=== PATIENT | male | born 1985 | race Two or more races ===

== ENCOUNTER 2024-08-12 20:01 | Emergency (ER) | payer MEDICAID, SELFPAY ==
--- NOTE | 2024-08-12 | ECG_ITS ---
Test Reason : TACHYCARDIA Blood Pressure : / mmHG Vent. Rate : 119 BPM Atrial Rate : 119 BPM P-R Int : 154 ms QRS Dur : 086 ms QT Int : 312 ms P-R-T Axes : 041 083 028 degrees QTc Int : 438 ms Sinus tachycardia Otherwise normal ECG When compared with ECG of 02-DEC-2018 15:17, Heart rate has increased Referred By: Generic ED Physician Electronically Signed By:SHIV PERSON
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
[2024-08-12 20:13] VITALS: BP 141/77; PULSE 119; RESP 16; O2SAT 96; BMI 51.1
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
[2024-08-12] MEDS: Acetaminophen 325 MG TABLET 975 MG PO (21:01)
[2024-08-12 22:10] VITALS: BP 141/77; PULSE 119; RESP 16; TEMP 36.9; O2SAT 96
== END 2024-08-12 22:10 | disposition home or self-care (01) ==
PROVIDERS: Emergency Provider Emergency Medicine
DX: S00.03XA Contusion of scalp, initial encounter (principal); Y08.02XA Assault by strike by baseball bat, initial encounter; M54.2 Cervicalgia; R00.0 Tachycardia, unspecified; Y93.9 Activity, unspecified; Y92.9 Unspecified place or not applicable; Y99.9 Unspecified external cause status
CPT/HCPCS: 70450; 72125; 93005; 99284

== ENCOUNTER 2025-04-03 13:01 | Emergency (ER) | payer MEDICAID, SELFPAY ==
--- NOTE | ~2025-04-03 | XR_ITS ---
CLINICAL HISTORY: Left chest wall pain, cough Two views of the chest. COMPARISON: None FINDINGS: Low lung volumes. Borderline cardiomegaly. Crowding of the bronchovascular markings, likely secondary to low lung volumes. No consolidation No pleural effusion or pneumothorax. Mild spondylosis. No acute fracture. IMPRESSION: 1. Low lung volumes with associated crowding of the bronchovascular markings This document has been electronically signed by: Saeed Arora MD on 04/03/2025 15:43:20
[2025-04-03 13:03] VITALS: BP 152/92; PULSE 99; RESP 20; TEMP 36.5; O2SAT 93; BMI 51.7
--- NOTE | 2025-04-03 13:08 | ED.GENADULT ---
HPI - General Adult General Chief complaint: Abdominal Pain Stated complaint: quest kidney stone Time Seen by Provider: 04/03/25 13:50 Source: patient Mode of arrival: ambulatory Limitations: no limitations History of Present Illness ED Provider: Jaxon Vo DO HPI narrative: 39-year-old male with past medical history of epilepsy on levetiracetam presents to the ED for 3 weeks of intermittent left-sided upper abdominal pain without nausea, hematuria, or dysuria. He denies fevers or chills. He has not had any vomiting or diarrhea. Patient does state that he has had a couple of weeks of urinary urgency and frequency. His pain does not radiate to his groin. He specifically states the pain is worsened with position changes and palpation and does not occur while in a comfortable position. He has an associated cough productive of sputum but has not looked at the sputum to evaluate the color. He has had no fevers but reports chills over the past couple of days. The cough has been present for a few days. No sick contacts at home. Smokes a cigar approximately once a day. Does not currently have a primary care provider. Related Data Previous Rx's ?Medication ?Instructions ?Recorded cefdinir 300 mg capsule 300 mg PO BID 10 days #20 caps 04/03/25 Allergies Allergy/AdvReac Type Severity Reaction Status Date / Time No Known Allergies Allergy Verified 04/03/25 13:04 Review of Systems Review of Systems: Yes all other systems are reviewed and are negative [facility] Social History Social History Advance Directives: No Advance Directives Information Provided: No Physical Exam ED Vital Signs: Vital Signs - 24 hr 04/03/25 13:03 Temperature 97.7 F Pulse Rate 99 Respiratory Rate 20 Blood Pressure 152/92 H Pulse Oximetry 93 Oxygen Delivery Method Room Air BMI result Body Mass Index 51.7 Constitutional: ?Alert, oriented, speaking in full sentences HEENT: ?Normocephalic, atraumatic. ?Moist mucous membranes Eyes: ?PERRL, EOMI Neck: ?Supple, nontender Chest: ?No chest wall tenderness Respiratory: ?Lungs clear to auscultation, no increased work of breathing, somewhat limited due to body habitus, occasional cough worsened with deep breaths Cardio: ?Regular rate and rhythm, no murmur, 2+ radial and DP pulses symmetrically GI: ?Soft, nondistended, nontender anteriorly but there is mild tenderness over the left lateral chest wall without overlying skin changes. Back: ?Normal range of motion, nontender Skin: ?No rash, no lesions Neuro: ?Alert and oriented to person, place and time, moves all 4 extremities, no focal deficits Extremities: ?No swelling or tenderness, full range of motion Psych: ?Calm, alert and cooperative, appropriate behavior Course Course Course Narrative: RME, this is a rapid medical exam performed by Babatunde Chapman please refer to primary provider for complete H&P- 39-year-old male presents for evaluation of left upper abdominal pain, flank pain. His pain is reproducible on exam, he reports his pain is worse with changing positions. He is concerned for kidney stones. Plan for labs, urinalysis. Medications Administered Discontinued Medications Generic Name Dose Route Start Last Admin Trade Name Freq PRN Reason Stop Dose Admin Acetaminophen 975 mg 04/03/25 14:29 04/03/25 14:49 Acetaminophen 325 Mg Tablet PO 04/03/25 14:30 975 mg ONCE ONE Administration Ibuprofen 600 mg 04/03/25 14:29 04/03/25 14:49 Ibuprofen 600 Mg Tablet PO 04/03/25 14:30 600 mg ONCE ONE Administration Lidocaine 1 patch 04/03/25 14:29 04/03/25 14:48 Lidocaine 4 % Patch Adh..Patch TRANSDERMA 04/03/25 14:30 1 patch ONCE ONE Administration Protocol Medical Decision Making Medical Decision Making [facility] Narrative: Vitally stable, overall well-appearing patient presenting with several weeks of left-sided chest wall pain as well as a couple of days of a productive cough. His urinary urgency and frequency could be indicative of acute cystitis. His cough could be indicative of pneumonia, especially with the pain. He has no signs of fluid overload clinically and no pleuritic chest pain or dyspnea on exertion. I do not suspect pulmonary embolism. I do not suspect ACS. The patient has no exertional symptoms. I also do not suspect ureteral stone and the patient has no blood in his urine. He has equivocal findings for cystitis and given the increased urgency and frequency, would likely benefit from antibiotics. We will further evaluate with chest x-ray for any radiographic signs of pneumonia. We will address his pain with lidocaine patch, acetaminophen and ibuprofen. Patient has no significant symptoms concerning for prostatitis. Unlikely to be a perinephric abscess or jessie pyelonephritis given the length of his symptoms and lack of fever, well appearance and lack of inflammatory markers. Chest x-ray per my independent interpretation shows no obvious acute abnormalities. Given the patient's urinary symptoms, we will treat with cefuroxime and prescribed a 7 day course. Return precautions provided. Lab Data MDM Lab Attestation statement: I reviewed the patient's lab results. 04/03/25 13:40 04/03/25 13:40 Labs: Lab Results 04/03/25 04/03/25 Range/Units 13:40 13:47 WBC 4.5 L (4.8-10.8) X10*3/uL RBC 5.64 (4.60-5.80) X10*6/uL Hgb 15.9 (14.0-18.0) g/dl Hct 47.8 (42.0-52.0) % MCV 84.8 (80.0-98.0) fL MCH 28.2 (27.0-33.0) pg MCHC 33.3 (31.0-36.0) g/dl RDW 13.9 (11.0-16.0) % Plt Count 207 (160-400) X10*3/uL MPV 9.7 (9.4-12.4) fL Immature Gran % (Auto) 0.0 (0.0-0.4) % Neut % (Auto) 60.6 (45-73) % Lymph % (Auto) 30.7 (20-40) % [place] % (Auto) 5.8 (2-11) % Eos % (Auto) 2.2 (0-4) % Baso % (Auto) 0.7 (0-2) % Lymph # (Auto) 1.4 (1.2-4.9) X10*3/uL [place] # (Auto) 0.3 (0.1-1.2) X10*3/uL Eos # (Auto) 0.1 (0.0-0.4) X10*3/uL Baso # (Auto) 0.0 (0.0-0.2) X10*3/uL Abs Immat Gran (auto) 0.00 (0.00-0.03) X10*3/uL Absolute Neuts (auto) 2.7 (2.0-8.3) x10*3/uL Absolute Nucleated RBC 0.000 (0.0-0.012) X10*3/uL Nucleated RBC % (auto) 0.0 (0.0-0.2) /100WBC Sodium 148 H (135-145) mmol/L Potassium 4.1 (3.3-5.1) mmol/L Chloride 114 H (96-108) mmol/L Carbon Dioxide 24 (22-29) mmol/L Anion Gap 14 (12-20) BUN 12 (9-16) mg/dL Creatinine 0.91 (0.5-1.4) mg/dL Estim Creat Clear Calc 190.4 Estimated GFR > 60 Random Glucose 179 H (60-115) mg/dL Calcium 9.3 (8.4-10.2) mg/dL Total Bilirubin 0.3 (0.0-1.0) mg/dL AST 26 (5-37) U/L ALT 30 (0-40) U/L Alkaline Phosphatase 58 (39-117) U/L Total Protein 7.1 (6.5-8.0) g/dL Albumin 3.9 (3.5-5.0) g/dL Urine Color Yellow Urine Appearance Clear Urine pH 5.5 (5.0-9.0) Ur Specific [place] 1.025 (1.005-1.025) Urine Protein Negative (Neg-Trace) mg/dL Urine Glucose (UA) 100 H (Negative) mg/dL Urine Ketones Negative (Negative) mg/dL Urine Blood Negative (Negative) Urine Nitrite Negative (Negative) Ur Leukocyte Esterase Trace H (Negative) Urine RBC 0-2 (0-2) /HPF Urine WBC 11-20 H (0-5) /HPF Ur Squamous Epith Cells 0-2 (0-2) /HPF Urine Bacteria Trace (None Seen) Hyaline Casts 0-2 (0-2) /LPF Discharge Plan Discharge Clinical Impression: Acute cystitis Qualifiers: Hematuria presence: without hematuria Qualified Code(s): N30.00 - Acute cystitis without hematuria Patient Disposition: Home, Self-Care Instructions: Urinary Tract Infection in Men (ED) Additional Instructions: It appears that you have a urinary tract infection. We gave you a dose of cefuroxime and prescribed a 7 day course. Please take the full course and follow up with the primary care provider and a urologist for further evaluation. Please return if you have any new or worsening symptoms. Prescriptions: New cefdinir 300 mg capsule 300 mg PO BID 10 Days Qty: 20 0RF [place] [facility] [place]] [facility] [place] Group] Stand Alone Forms: Work/School Release Print Language: Israeli
[2025-04-03 13:44] LABS: MANUAL DIFF FLAG NO
[2025-04-03 13:46] LABS: Basophils Percent Auto 0.7 % (0-2); Eosinophils Absolute Auto 0.1 X10*3/uL (0.0-0.4); Eosinophils Percent Auto 2.2 % (0-4); Hematocrit 47.8 % (42.0-52.0); Hemoglobin 15.9 g/dl (14.0-18.0); Lymphocytes Absolute Auto 1.4 X10*3/uL (1.2-4.9); Lymphocytes Percent Auto 30.7 % (20-40); Mean Corpuscular HGB Conc 33.3 g/dl (31.0-36.0); Mean Corpuscular Hemoglobin 28.2 pg (27.0-33.0); Mean Corpuscular Volume 84.8 fL (80.0-98.0); Mean Platelet Volume 9.7 fL (9.4-12.4); Monocytes Absolute Auto 0.3 X10*3/uL (0.1-1.2); Monocytes Percent Auto 5.8 % (2-11); Neutrophils Absolute Auto 2.7 x10*3/uL (2.0-8.3); Neutrophils Percent Auto 60.6 % (45-73); Platelet Count 207 X10*3/uL (160-400); Red Blood Count 5.64 X10*6/uL (4.60-5.80); Red Cell Distribution Width 13.9 % (11.0-16.0); White Blood Count 4.5 X10*3/uL (4.8-10.8)
[2025-04-03 13:53] LABS: Appearance Urine Clear; Color Urine Yellow; Glucose Urine UA 100 mg/dL (Negative); Leukocyte Esterase Urine Trace (Negative); Nitrite Urine Negative (Negative); PH 5.5 (5.0-9.0); Specific Gravity - Urine 1.025 (1.005-1.025); UMIC TRIGGER UACC YES; Urine Blood Negative (Negative); Urine Ketones Negative (Negative); Urine Protein Negative (Neg-Trace)
[2025-04-03 13:57] LABS: Bacteria Urine Trace (None Seen); Hyaline Casts Urine 0-2 /LPF (0-2); RBC Urine 0-2 /HPF (0-2); Squamous Epithelial Cell Urine 0-2 /HPF (0-2); UACC Culture Trigger YES
[2025-04-03 13:59] LABS: Alanine Aminotransferase 30 U/L (0-40); Albumin Level 3.9 g/dL (3.5-5.0); Alkaline Phosphatase 58 U/L (39-117); Anion Gap 14 (12-20); Aspartate Amino Transferase 26 U/L (5-37); Bilirubin Total 0.3 mg/dL (0.0-1.0); Blood Urea Nitrogen 12 mg/dL (9-16); Calcium 9.3 mg/dL (8.4-10.2); Carbon Dioxide 24 mmol/L (22-29); Chloride 114 mmol/L (96-108); Creatinine Clr Calc Pharmacy 190.4; Estimated Glomerular Filt Rate > 60; Glucose Random 179 mg/dL (60-115); Potassium 4.1 mmol/L (3.3-5.1); Sodium 148 mmol/L (135-145); Total Protein 7.1 g/dL (6.5-8.0)
--- OUTSIDE RECORDS SUMMARY | 2025-04-03 13:59 | XMS_ITS | Clinical Summary ---
Author Organization [facility] Address [address] [place] [address] Care Team Providers Care Liquid Flavor Compounder Name Role Phone Gretel Mujica MD Primary Care Provider [phone] Allergies No known active allergies Medications hydroCHLOROthiaz maricruz (HYDRODiuril) 25 MG tablet Take 1 tablet (25 mg) by mouth Once per day. 30 tablet 11 10/19/2024 5 Active levETIRAcetam (Keppra) 1000 MG tablet Take 1 tablet (1,000 mg) by mouth 2 times daily. 60 tablet 11 10/19/2024 5 Active Blood Pressure kit 1 each 2 times daily. 1 kit 10/28/2024 5 Active Active Problems Problem Noted Date Diagnosed Date Seizure disorder 10/28/2024 Encounters Date Type Department Care Team Description 01/22/2025 Population Health Risk Score [facility] ([facility] Department [address] [id number] Provider, Population Health Generic from Last 3 Months Immunizations Immunization Administration Dates Next Due Influenza injectable quadrivalent preservative f ree 12/13/2015 Influenza, IIV3, injectable 09/09/2014 Tdap 05/27/2024,10/19/2019 Social History Tobacco Use Types Packs/Day Years Used Date Smoking Tobacco: Former Cigarettes Smokeless Tobacco: Never Tobacco Cessation:Counseling Given: Not Answered Sex and Gender Information Value Date Recorded Sex Assigned at Male 09/10/2022 10:14 AM EDT Legal Sex Male 10:14 AM EDT Gender Identity Male 09/10/2022 10:14 AM EDT Sexual Orientation Straight 09/10/2022 10 :14 AM EDT Last Filed Vital Signs Vital Sign Reading Time Taken Comments Blood Pressure 157/92 10/28/2024 4:09 PM EST Pulse 94 10/28/2024 3:35 PM EST Temperature 36 ??C (96.8 ??F) 10/28/2024 3:35 PM EST Respiratory Rate 20 10/28/2024 3:35 PM EST Oxygen Saturation 94% 10/28/2024 3:35 PM EST Inhaled Oxygen Concentration - - Weight 178 kg (393 lb 6.4 oz) 10/28/2024 3:35 PM EST Height 187 cm (6' 1.62 ) 10/19/2019 12:12 AM EST Body Mass Index 51.04 10/19/2019 12:12 AM EST Plan of Treatment Health Maintenance Due Date Last Done Comments Depression Screening 1986 HIV Screening 1986 Lipid Panel 1986 SDOH Screening 1986 Disability Screening 1986 Alcohol/Substance Use Screening 1998 Family Planning (PISQ) 2001 Hepatitis C Screening 2004 Hepatitis B Vaccines (1 of 3 - 19+ 3-dose series) 2005 COVID-19 Vaccine ( - 2023-2 5 season) 2024 Influenza Vaccine (#1) 2024 6, 09/09/2014 Tobacco Screening 10/28/2025 10/28/2024 DTaP/Tdap/Td Vaccines (3 - T d or Tdap) 05/27/2034 05/27/2024, 10/19/2019 Zoster Vaccines (1 of 2) 2036 RSV Patients and Patients Aged 60 years or older (1 - 1-dose 75+ series) 2061 HIB Vaccines Aged Out No longer eligi ble based on patient's age to complete this topic HPV Vaccines Aged Out No longer eligi ble based on patient's age to complete this topic Hepatitis A Vaccines Aged Out No long er eligible based on patient's age to complete this topic IPV Vaccines Aged Out No longer eligi ble based on patient's age to complete this topic Meningococcal B Vaccine Aged Out No l onger eligible based on patient's age to complete this topic Meningococcal Vaccine Aged Out No flakita néstor eligible based on patient's age to complete this topic Pneumococcal Vaccine: Pediatrics (0 to 5 Years) and At-Risk Patients (6 to 49) Years) Aged Out No longer eligible b ased on patient's age to complete this topic RSV under 20 months Aged Out No longe r eligible based on patient's age to complete this topic Rotavirus Vaccines Aged Out No longer eligible based on patient's age to complete this topic Insurance (Home) [address] [address] [facility] ([facility]) [address] [address] (Home) [address] [address] (Home) [address] [address] Care Teams Liquid Flavor Compounder Relationship Specialty Start Date End Date Gretel Mujica MD [address] [place] [id number] PCP - General Family Medicine 10/19/24
[2025-04-03] MEDS: Lidocaine 4 % Patch ADH..PATCH 1 PATCH TRANSDERMA (14:48)
[2025-04-03] MEDS: Ibuprofen 600 MG TABLET PO (14:49)
[2025-04-03] MEDS: Acetaminophen 325 MG TABLET 975 MG PO (14:49)
[2025-04-03] MEDS: cefuroxime axetiL 500 MG TABLET PO (16:13)
[2025-04-03 16:14] VITALS: BP 150/80; PULSE 99; RESP 20; TEMP 36.5; O2SAT 93
== END 2025-04-03 16:14 | disposition home or self-care (01) ==
PROVIDERS: Physician Assistant; Emergency Provider Emergency Medicine
DX: R10.12 Left upper quadrant pain (principal); R07.89 Other chest pain; R05.9 Cough, unspecified; Z79.899 Other long term (current) drug therapy
CPT/HCPCS: 36415; 71046; 80053; 81001; 85025; 87086; 99283; 99284

== ENCOUNTER → 2025-04-03 14:29 | Outpatient (BNV) | payer MEDICAID, SELFPAY | PROVIDERS: Emergency Provider Emergency Medicine; Visit Provider Radiology Diagnostic Radiology | DX: J98.4 Other disorders of lung (principal) | CPT/HCPCS: 71046 ==

== ENCOUNTER 2025-11-02 18:43 | Emergency (ER) | payer SELFPAY ==
[2025-11-02 18:54] VITALS: BP 151/95; PULSE 105; RESP 18; TEMP 36.7; O2SAT 94; BMI 50.1
--- NOTE | 2025-11-02 19:32 | ED_ITS ---
HPI - General Adult General Chief complaint: General Medical Stated complaint: Med refill on seizure meds Time Seen by Provider: 11/02/25 19:34 Source: patient Mode of arrival: ambulatory Limitations: no limitations History of Present Illness ED Provider: Tien Lennon HPI narrative: [age] year male history of seizure presents to ED for medication refill for seizure. Patient needs his Keppra 1000 mg b.i.d.. Patient states no complaints Related Data Previous Rx's ?Medication ?Instructions ?Recorded cefdinir 300 mg capsule 300 mg PO BID 10 days #20 ca ps 04/03/25 levetiracetam 1,000 mg tablet 1,000 mg PO BID 20 days #40 tabs 11/02/25 (Keppra) Allergies Allergy/AdvReac Type Severity Reaction Status Date / Time No Known Allergies Allergy Verified 11/02/25 18:57 Review of Systems Review of Systems: Medication refill Yes all other systems are reviewed and are negative PMFSH Social History Social History Advance Directives: No Advance Directives Information Provided: No Physical Exam ED Vital Signs: Vital Signs - 24 hr 11/02/25 18:54 11/02/25 19:41 Temperature 98.1 F 98.1 F Pulse Rate 105 H 105 H Respiratory Rate 18 18 Blood Pressure 151/95 H 151/95 H Pulse Oximetry 94 94 Oxygen Delivery Method Room Air Room Air BMI result Body Mass Index 50.1 Const General: cooperative, healthy appearing, comfortable, no acute distress, well developed, alert, awake and Physically active Orientation/consciousness: patient oriented x3 HENMT Head: Yes normal to inspection, Yes No palpable skull fracture present, Yes normocephalic and Yes atraumatic Eyes General: appearance normal, both eyes and all related structures Neck Neck: Yes normal visual inspection, Yes full ROM, Yes no lymphadenopathy, Yes no meningeal signs, Yes trachea midline, Yes supple, No anterior neck swelling and No tender Chest Chest palpation & inspection: normal inspection of the chest and normal palp ation of entire chest wall Resp Effort & Inspection: normal respiratory effort and able to speak in complete sentences Auscultation: clear to auscultation bilaterally Cardio Jugular venous distension: no JVD Heart sounds: S1 normal heart sound present and S2 normal heart sound present GI Inspection: Yes normal to inspection Palpation (GI): Soft to palpation, not firm, nontender, no guarding and not rigid General: Yes no CVA tenderness Back/Spine/Pelvis Back: no CVA tenderness and No back tenderness Skin General skin exam: no rashes or lesions noted, elasticity normal and turgor normal Neuro General: patient oriented x3, gait normal, tone normal, moves all extremities, Normal light touch and pain sensation, no meningeal signs, no focal motor deficits, CN's II-XI intact bilaterally and normal sensation to monofilament Extrem General: Yes normal to inspection, Yes full ROM and Yes capillary refill normal Psych Appearance: grossly normal, well kempt and not disheveled Course Course Course Narrative: RME: needs keppra medication refill. no complaints Medical Decision Making Medical Decision Making MDM Narrative: 40 year male presents to ED for medication refill of Keppra Scott mg b.i.d.. Patient states no physical complaints. Patient denies any recent seizure. Medication prescribed. 02 sat 95% room air on monitor. patient states explained worrisome signs. Differential Diagnosis Differential Diagnoses: The differential diagnosis associated with the presentation includes (Medication refill) Admission/Observation Consideration of admission/observation: Escalation of care including admission/observation considered Independent Historian Clinical information obtained from an independent historian. History obtained from or confirmed by: Other (Patient is) Prescription Management I considered prescription management with: Other (Medication refill) Discharge Plan Discharge Clinical Impression: Medication refill Patient Disposition: Home, Self-Care Instructions: Medicine Refill (ED) Additional Instructions: Return to the ED for any concerning symptoms Prescriptions: New levetiracetam [Keppra] 1,000 mg tablet 1,000 mg PO BID 20 Days Qty: 40 0RF No Action cefdinir 300 mg capsule 300 mg PO BID 10 Days Qty: 20 0RF [facility]: [facility], [facility] Medicine] - 2 days Referral Note: Seizures medication refill Clinical Impression: Medication refill Interventions: ED Discharge Assessment Last Done: 11/02/25 19:41 Discharge Date/Time: 11/02/25 19:42 Print Language: Ivorian
--- OUTSIDE RECORDS SUMMARY | 2025-11-02 19:40 | XMS_ITS | Clinical Summary ---
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 30 tablet 11 10/19/2024 Active levETIRAcetam (Keppra) 1000 MG tablet Take 1 tablet (1,000 mg) by mouth 2 times daily. 60 tablet 11 10/19/2024 Active Blood Pressure kit 1 each 2 times daily. 1 kit 10/28/2024 Active Problems Problem Noted Date Diagnosed Date Seizure disorder (CMS/HCC) 10/28/2024 Immunizations Immunization Administration Dates Next Due Influenza [...] 94 10/28/2024 3:35 PM EST Temperature 36 C (96.8 F) 10/28/2024 3:35 PM EST Respiratory Rate 20 [...] Use Screening 1998 Family Planning (PISQ) 2001 HPV Vaccines (1 - Male 3-dos e series) 2001 Hepatitis C Screening 2004 Hepatitis B Vaccines (1 of 3 - 19+ 3-dose series) 2005 COVID-19 Vaccine (1 - 2024-2 6 season) 2025 Influenza Vaccine (#1) 2025 6, 09/09/2014 Tobacco Screening 10/28/2025 10/28/2024 DTaP/Tdap/Td [...] Years) and At-Risk Patients (6 to 49) Years Aged Out No longer eligible b ased on patient's age to complete this topic RSV under 20 months Aged Out No longe r eligible based on patient's age to complete this topic Rotavirus Vaccines Aged Out No longer eligible based on patient's age to complete this topic Insurance [facility] C3 Care Teams Candle Extrusion Machine Operator Relationship Specialty Start Date End Date Chava Hendrix CNP PCP - General Family Medicine 06/23/25
[2025-11-02 19:41] VITALS: BP 151/95; PULSE 105; RESP 18; TEMP 36.7; O2SAT 94
== END 2025-11-02 19:42 | disposition home or self-care (01) ==
PROVIDERS: Emergency Provider Emergency Medicine
DX: G40.909 Epilepsy, unspecified, not intractable, without status epilepticus (principal); Z79.899 Other long term (current) drug therapy; Z76.0 Encounter for issue of repeat prescription
CPT/HCPCS: 99282; 99283